=== PATIENT | female | born 1980 | race Caucasian/White ===

== ENCOUNTER 2016-07-18 16:29 | Inpatient (IN) | payer OTHER ==
[~2016-07-18] VITALS: Ht 154.9 cm; Wt 47.7 kg
[2016-07-18] MEDS: NICOTINE 21MG/24HR 1 EA TRANSDERMAL TD SCH (09:00)
[~2016-07-18 16:29] MED LIST: DIGO0.12 PO; ZOLO50TA PO
[2016-07-18] MEDS ORDERED: MOM 30ML SUSPENSION UDC PO PRN (22:45)
[2016-07-18] MEDS ORDERED: MAALOX 30 ML SUSP *UDC PO PRN (22:45)
--- NOTE | 2016-07-18 23:15 | EDDOCDS ---
Physician Documentation [facility] [employer] Name: Grisel Stover Age: 36 yrs Sex: Female : 1980 Arrival Date: 07/18/2016 Time: 16:29 Bed U4 Private MD: Disposition: 07/18 20:05 Critical Care: Critical care not applicable. pc Disposition: 07/18/16 20:05 Hospitalization ordered by John Mccray for Inpatient Admission. Preliminary diagnosis are Suicide attempt, Major depressive disorder, recurrent, moderate. - Bed requested for Admit. - Status is Inpatient Admission. cp1 - Condition is Stable. - Problem is new. - Symptoms are unchanged. HPI: 17:00 This 36 yrs old Female presents to ER via Walkin/Carried/Asstd with pc complaints of Psych Problem. 17:00 She overdose on Benadryl and alcohol last night as a suicide attempt, was seen at [facility] and medically cleared overnight and transferred here for Psych evaluation. Her potassoim leve was initially low but normalized after oral replacement. 17:00 The patient has experienced similar episodes in the past, a few times. pc Historical: - Allergies: SHELLFISH; - Home Meds: 1. Percocet 5-325 mg Oral tab 1 tab every 6 hours (Last dose: Unknown) - PMHx: pericarditis; Depression; mitral valve prolapse; Lyme Disease; Anxiety; - PSHx: none; - The history from nurses notes was reviewed: but there are no nursing notes, or only partial notes available at the time of my charting. - Social history: Smoking status: Patient states was never smoker of tobacco. No barriers to communication noted, Speaks appropriately for age. - : The pt / caregiver states he / she is not on anticoagulants. Home medication list is obtained from the facility SEP. - Exposure Risk Screening:: None identified. - Immunization history:: All immunizations up-to-date. - Family history: Not pertinent. - Social history:: the patient smokes cigarettes the patient drinks alcohol. ANATOMICAL EMBALMER: 16:30 negative as per lab work ml6 ROS: 17:00 All systems are negative except as listed. The psychiatric and neurological components pc are also addressed in the HPI. Exam: 17:00 General Appearance: alert, no acute distress. pc 17:00 ENT: ear, nose and throat normal, pharynx normal. 17:00 Eyes: pupils equal, round and reactive to light, extraocular motions intact. 17:00 Neck: The exam reveals no acute abnormalities. ROM is normal and painless. No nuchal rigidity is noted.. 17:00 Respiratory: breathing is even and unlabored, breath sounds are normal. 17:00 Cardiovascular: regular pulse rate, regular heart rhythm, normal heart sounds, equal and full pulses bilaterally. 17:00 Abdomen: soft, non-tender, no organomegaly, normal bowel sounds. 17:00 Skin: skin color is normal, warm, dry. 17:00 Extremities: The extremities have a grossly normal appearance, are non-tender, without acute ROM abnormalities. 17:00 Neuro: alert, oriented to person, place and time, cranial nerves normal as tested, no motor deficits, no sensory deficits. 17:00 Psych: mood is depressed, affect is flat. Vital Signs: 16:30 BP 122 / 78; Pulse 64; Resp 18; Temp 97.3(T); Pulse Ox 98% on R/A; Pain 0/10; ml6 19:54 BP 112 / 80; Pulse 88; Resp 16; Temp 97.5(T); Pulse Ox 100% on R/A; Pain 0/10; slm 22:45 BP 133 / 84; Pulse 75; Resp 16; Temp 96.3; Pulse Ox 100% on R/A; slm MDM: 17:00 Differential diagnosis: depression, suicide attempt. Plan: PFS eval, admission. Data pc reviewed: All records pertaining to the patient's transfer have been reviewed. 17:40 REGULAR DIET PLASTIC THOMAS+DIET ordered. EDMS 18:47 Financial registration complete. gjb 20:05 The patient has been medically cleared for psychiatric evaluation, admission and/or pc transfer. [place] Safe [place] reporting: The patient poses a significant risk to self or others, and PSA/PFS has notified the Nursing Tariff Counsel and he/she will complete the required senior clinical data coordinator. Test interpretation: none. The patient has been re-examined and re-evaluated. There is no appreciated change of the patient's symptoms at this time. Disposition: The historical points, examination findings, and any diagnostic results supporting the provided diagnosis, were discussed with the patient or legal guardian. The need for further work-up and/or treatment in the hospital was explained. 20:14 [facility] Payment Agreement was scanned into [employer] and attached to record. gjb 22:40 Admit to IMHU: ordered. EDMS 22:41 REGULAR DIET ordered. EDMS 22:42 [facility] Legal paperwork was scanned into [employer] and attached to record. jing Signatures: Dispatcher [employer] EDMS Coleman Zhao MD MD pc LaFontaine, Scottie, PSA PSA Toni Paula, RN RN ml6 Britt Tejada,MILITARY SOURCE OPERATIONS SPECIALIST MILITARY SOURCE OPERATIONS SPECIALIST cp1 Myla Burnett The chart was reviewed and I authenticate all verbal orders and agree with the evaluation and treatment provided.Attachments: 20:14 [facility] Payment Agreement gjb MTDD
--- NOTE | 2016-07-18 23:15 | EDDOCDS ---
Nurse's Notes [facility] Name: Grisel Stover Age: 36 yrs Sex: Female : 1980 Arrival Date: 07/18/2016 Time: 16:29 Bed [facility] Private MD: Diagnosis: Suicide attempt;Major depressive disorder, recurrent, moderate Presentation: 07/18 16:30 Presenting complaint: Patient states: sent here from [facility] for MHE due to OD ml6 on benadryl. Mental Health Triage Level: Level 3: The patient presents with recent overdose that might represent a suicide attempt. Adult Sepsis Screening: The patient does not have new or worsening altered mentation. Patient's respiratory rate is less than 22. Systolic blood pressure is greater than 100. Patient has a qSOFA score of 0- Negative Sepsis Screen. Mental Health Triage Level: Level 3: The patient presents with recent overdose that might represent a suicide attempt. Suicide/Homicide risk assessment- The patient reports that he/she has no prior history of suicide attempt and/or organized plan. Status: Patient is not a automobile service station manager or dependent. Transition of care: patient was received from [facility]. 16:30 Acuity: SUSI Level 3 ml6 16:30 Method Of Arrival: Walkin/Carried/Asstd ml6 Triage Assessment: 16:54 General: Appears in no apparent distress, Behavior is appropriate for age, cooperative. ml6 Pain: Denies pain. HIV screening NA for this visit Offered previously. Neurological: No deficits noted. Level of Consciousness is awake, alert, Oriented to person, place, time, Dampener are equal bilaterally. Cardiovascular: No deficits noted. Capillary refill < 3 seconds is brisk in bilateral fingers toes Heart tones S1 S2 present Edema is absent. Pulses are all present. Respiratory: No deficits noted. Airway is patent Respiratory effort is even, unlabored, Respiratory pattern is regular, symmetrical, Breath sounds are clear bilaterally. GI: No deficits noted. Abdomen is flat, Bowel sounds present X 4 quads. Abd is soft and non tender X 4 quads. DELIVERY ANALYST: 16:30 negative as per lab work ml6 Historical: - Allergies: SHELLFISH; - Home Meds: 1. Percocet 5-325 mg Oral tab 1 tab every 6 hours (Last dose: Unknown) - PMHx: pericarditis; Depression; mitral valve prolapse; Lyme Disease; Anxiety; - PSHx: none; - The history from nurses notes was reviewed: but there are no nursing notes, or only partial notes available at the time of my charting. - Social history: Smoking status: Patient states was never smoker of tobacco. No barriers to communication noted, Speaks appropriately for age. - : The pt / caregiver states he / she is not on anticoagulants. Home medication list is obtained from the facility MAR. - Exposure Risk Screening:: None identified. - Immunization history:: All immunizations up-to-date. - Family history: Not pertinent. - Social history:: the patient smokes cigarettes the patient drinks alcohol. Screenin:10 Screening information is obtained from the patient. Fall risk: No risks identified. ml6 Assistance ADL's: requires no assistance with activities of daily living. Abuse/DV Screen: The patient / caregiver reports he/she is: not in a situation that causes fear, pain or injury. Nutritional screening: No deficits noted. Advance Directives: Currently, there is no health care proxy. home support is adequate. Assessment: 16:30 General:. ml6 16:30 General: see triage assessment. ml6 17:30 General: Appears in no apparent distress, comfortable. Pain: Denies pain. Neurological: ml6 No deficits noted. Level of Consciousness is awake, alert, Oriented to person, place, time, Dampener are equal bilaterally. Cardiovascular: No deficits noted. Capillary refill < 3 seconds is brisk in bilateral fingers toes Heart tones S1 S2 present Edema is absent. Pulses are all present. Rhythm is regular Chest pain is denied. Respiratory: No deficits noted. Airway is patent Respiratory effort is even, unlabored, Respiratory pattern is regular, symmetrical, Breath sounds are clear bilaterally. GI: No deficits noted. 19:53 General: Appears in no apparent distress, comfortable, Behavior is appropriate for age, slm cooperative, pleasant. General: pt sitting on stretcher denies needs family in room security observing . Pain: Denies pain. Neurological: Level of Consciousness is awake, alert, obeys commands. Respiratory: Airway is patent Respiratory effort is even, unlabored. Derm: Skin is pink, warm & dry. 21:00 General: Appears in no apparent distress, comfortable, Behavior is cooperative, quiet. slm General: pt sitting on stretcher denies needs security observing . Respiratory: Airway is patent Respiratory effort is even, unlabored. Derm: Skin is pink, warm & dry. 22:02 General: Appears in no apparent distress, comfortable, Behavior is cooperative, quiet. slm General: resting on stretcher security observing . Respiratory: Airway is patent Respiratory effort is even, unlabored, Respiratory pattern is regular, symmetrical. Derm: Skin is pink, warm & dry. 22:32 General: Appears in no apparent distress, comfortable, Behavior is quiet. General: slm resting on stretcher awaiting admission . Respiratory: Airway is patent Respiratory effort is even, unlabored. 22:45 General: Appears in no apparent distress, comfortable, Behavior is appropriate for age, slm cooperative, quiet. General: security observing . Respiratory: Airway is patent Respiratory effort is even, unlabored. Mental Health Eval: 17:27 Mental health consult is initiated at 17:00. Status: The patient is not a rb automobile service station manager or dependent. [facility] Behavioral Health: The patient is not an established patient of [facility] Behavioral Health. Referral Information: Evaluation referral is generated by [facility]. The patient was referred for evaluation because Pt transferred from [facility] after overdose on 40 Benadryl and +ETOH. Pt reported stressed out last couple weeks, BF broke up with her right after [place]. Pt reported taking Benadryl to help sleep. Pt stated went out last night +ETOH. When Pt return home, EXBF called her, Pt became upset and took an handful of pills before her friend could stop her, according to Friend. Pt minimized her behavior, stated does not remember doing that. Pt reported an alcohol issue, drinks 3-4 Xs weekly until reaching intoxication each time. . Subjective: The patients chief complaint is Depressed, "low self esteem", +SI attempt by overdose. . Delusions are denied. Patient's mood is anxious, depressed, Hallucinations are denied. Mental Health history: alcohol abuse, anxiety, depression, abusing Benadryl . sleep disturbance, suicide attempt by At age 16 by cutting wrist and 2014 overdose. Mental Health Admissions: 04/2014 \\T\\ [facility], At age 16 \\T\\ [facility]. Current Outpatient Mental Health Services: Therapist / Agency: Had initial apt with Sonia Santiago, next apt is 07/22/16. According to Pt has initial apt with PCP Chris [facility] Pt attended outpt services \\T\\ [facility]. Current living environment is The patient currently lives self. Patient presents to Emergency Department with the following symptoms within the past 2 weeks: anxiety, depressed mood, labile mood, poor concentration, poor impulse control, relational problem, sleep disturbance - insomnia, suicidal ideation with attempt/gesture by pills. Substance abuse: Patient uses beer, 3-4 Xs weekly OTC. Mental status exam: Patients appearance is disheveled Patient's behavior is cooperative, minimally responsive Speech is unspontaneous Affect is blunted Mood is anxious. depressed. Hallucinations are denied. Appetite is erratic Memory is fair. Energy level is normal. Content of thought is depressive. , Thought process is characterized by flight of ideas. Cognitive level is oriented to person, place, time and situation Patient's insight is poor. Judgement is poor. Rapport with interviewer is good. guarded. Suicidal Ideation is denied. Homicidal ideation is not present. Disposition: Medically cleared for disposition by Coleman Zhao MD. 18:11 Disposition: Psychiatric Consult is performed by phone with Dr John Mccray. rb Narrative: Dr Mccray will do a face to face with Pt. 19:06 Disposition: The patient has a safe destination which is Dr. Almendarez felt Pt could rb be D/C and will followup with outpt \\T\\ [facility] [place] on 07/22/16. Pt currently denies SI/Hi, is A&Ox3, calm and cooperative, denied AH/VH. Pt's mother will transport Pt home and stay with her for a few days. No further interventions needed at this time. 20:00 Disposition: Psychiatric Consult is a face to face evaluation performed by Dr John Mccray. [facility] Admission Criteria: The patient requires continuous observation and/or control to protect self, others or property. The patient's care requires a multi-modal treatment plan under close supervision and coordination due to the complexity and severity of the patient's symptoms. Legal Status: Patient's legal status will be Emergency admission: . [place] Safe [place] Safe [place] is applicable to this patient. The patient poses a risk to self or other and the Nursing Iron Molder Helper has been notified. He/She will enter the patient's data. Vital Signs: 16:30 BP 122 / 78; Pulse 64; Resp 18; Temp 97.3(T); Pulse Ox 98% on R/A; Pain 0/10; ml6 19:54 BP 112 / 80; Pulse 88; Resp 16; Temp 97.5(T); Pulse Ox 100% on R/A; Pain 0/10; slm 22:45 BP 133 / 84; Pulse 75; Resp 16; Temp 96.3; Pulse Ox 100% on R/A; slm Vitals: 16:30 Log In Time N/A - ambulance arrival. ml6 ED Course: 16:30 Patient visited by Barbie Bob PCA. ar3 16:30 Patient moved to Waiting ar3 16:30 Patient moved to [facility] ar3 16:32 Coleman Zhao MD is Attending Physician. pc 16:35 Patient visited by Shiv Harris. dpm 16:48 Triage Initiated ml6 16:52 Patient visited by Coleman Zhao MD. pc 16:56 Patient visited by Shiv Harris. dpm 16:57 Pt greeted and oriented to ED. Patient advised of names of staff involved in care, dpm location of call stearns, wait times and NPO status. Patient has correct armband on for positive identification. Placed in gown. Placed in psych safe attire. Security observing. Property removed, inventory done, secured in belongings bag- placed in locked locker. Placed in locker 4. Latasha (JAMIN) observed pt while changing . Psych Safety Check: Location: Psych Room. Visual Assessment: Cooperative. 17:11 Patient visited by Shiv Harris. dpm 17:27 Patient visited by Shiv Harris. dpm 17:42 Patient visited by Shiv Harris. dpm 18:10 The patient / caregiver is instructed regarding the plan of care and ED course. ml6 18:10 No IV's were initiated during this patient's visit. No procedures done that require ml6 assistance. 18:16 Patient visited by Toni Zuniga RN. ml6 18:16 Patient visited by Shiv Harris. dpm 18:31 Patient moved to OBSERVATION pc 18:33 Patient visited by Shiv Harris. dpm 18:45 Patient visited by Shiv Harris. dpm 19:00 Patient visited by Shiv Harris. dpm 19:21 Patient visited by Shiv Harris. dpm 19:44 Patient visited by Matti Cordoba. tr 19:53 Isela Portillo LPN is Primary Nurse. slm 19:55 Patient visited by Isela Portillo LPN. slm 20:00 Patient visited by Matti Cordoba. tr 20:05 John Mccray is Hospitalizing Provider. pc 20:05 Patient moved to [facility] pc 20:14 Patient visited by Matti Cordoba. tr 20:14 [facility] Payment Agreement was scanned into [employer] and attached to record. gjb 20:18 Patient name changed from Grisel\\S\\\\S\\Ck\\S\\ to Grisel\\S\\ \\S\\Ck. EDMS 20:38 Patient visited by Matti Cordoba. tr 20:45 Patient visited by Matti Cordoba. tr 21:01 Patient visited by Isela Portillo LPN. slm 21:31 Patient visited by Matti Cordoba. tr 21:48 Patient visited by Matti Cordoba. tr 22:00 Patient visited by Matti Cordoba. tr 22:03 Patient visited by Isela Portillo LPN. slm 22:30 Patient visited by Matti Cordoba. tr 22:33 Patient visited by Isela Portillo LPN. m 22:42 E Legal paperwork was scanned into [employer] and attached to record. jl 22:49 Patient visited by Isela Portillo LPN. slm 23:00 Patient visited by Matti Cordoba. tr Attachments: 22:42 [facility] Legal paperwork jl Order Results: There are currently no results for this order. Outcome: 20:05 Decision to Hospitalize by Provider. pc 22:32 No special radiology studies were completed. slm 22:50 Discharge Assessment: patient administered narcotics - no. slm 23:08 The following High Risk Discharge criteria are identified: None. Admitted to [facility] accompanied by tech, with chart. Condition: stable. 23:14 Patient left the ED. [facility] Signatures: Dispatcher [employer] EDMS Coleman Zhao MD MD pc Baxter, Renee, PSA PSA rb LaFontaine, Jon, PSA PSA Romelia Rao, PSA PSA ms Cordoba, Matti Toni Andrade, KIMO RN ml6 Barbie Bob, INVESTIGATION OFFICER INVESTIGATION OFFICER ar3 Britt Tejada,CONTACT CENTRE SUPERVISOR CONTACT CENTRE SUPERVISOR cp1 Shiv Harris dpm, Stephanie,CONTACT CENTRE SUPERVISOR CONTACT CENTRE SUPERVISOR slMyla Freeman MTDD
[2016-07-18 23:26] VITALS: BP 127/86
[2016-07-19 06:34] VITALS: BP 100/68
[2016-07-19] MEDS: NICOTINE 21MG/24HR 1 EA TRANSDERMAL TD SCH (08:46)
[2016-07-19] MEDS: ACETAMINOPHEN TAB 650MG DOSE (2X325MG) PO PRN (18:18)
[2016-07-19 18:48] VITALS: BP 109/86
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
[2016-07-19] MEDS: traZODone 50 MG TAB PO PRN (21:50)
[2016-07-20 06:27] VITALS: BP 107/69
[2016-07-20] MEDS: NICOTINE 21MG/24HR 1 EA TRANSDERMAL TD SCH (08:38)
[2016-07-20] MEDS: ACETAMINOPHEN TAB 650MG DOSE (2X325MG) PO PRN (08:39)
[2016-07-20] MEDS ORDERED: SERTRALINE HCL 25 MG TABLET PO SCH (09:00)
--- NOTE | 2016-07-20 13:17 | HPE ---
DATE OF ADMISSION: 07/18/2016 Please refer to psychiatric history and evaluation for further details on this admission. This examination and history is intended for medical issues which may need treatment, followup or consult on this 36-year-old female who was transferred from [facility] for mental health evaluation secondary to an overdose on Benadryl. PRIMARY CARE PROVIDER: None currently. PAST MEDICAL HISTORY: She has a history of heart disease, Lyme pericarditis, mitral valve prolapse. Lyme disease resolved. History of rectal fissures. PAST SURGICAL HISTORY: None. HOME MEDICATIONS: None. SOCIAL HISTORY: She is single. She drinks 3 or 4 times a week to intoxication. She smokes one half to one pack of cigarettes per day. FAMILY HISTORY: Father myocardial infarction age 53, history of rheumatic heart failure. Mother hypertension, sleep apnea. REVIEW OF SYSTEMS: Negative. She had no complaints. PHYSICAL EXAMINATION: 36-year-old cooperative female in no acute distress. Height 61 inches, BMI 19.3. Blood pressure 127/86, pulse 76, respirations 18, temperature 97.3. The patient is alert and oriented times three. Pupils equal and reactive to light. Extraocular movements intact. Cornea and sclera clear. Conjunctiva normal. No facial asymmetry. Pharynx, tongue and gums pink and moist. Tongue is midline. Neck is supple, without lymphadenopathy. No thyromegaly. No goiter. Chest clear to auscultation, without wheeze or retraction. Heart is regular. Abdomen benign. Bowel sounds positive. Genitourinary ()/Rectal: Not done. Extremities show equal strength, full range of motion. No cyanosis, clubbing or edema. Peripheral pulses equal and palpable bilaterally. Skin is warm and dry. IMPRESSION/PLAN: Psychiatric plan per psychiatry. No acute medical issues.
[2016-07-20 18:39] VITALS: BP 118/76
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
[2016-07-20] MEDS: traZODone 50 MG TAB PO PRN (22:26)
[2016-07-21 06:04] VITALS: BP 104/62
[2016-07-21] MEDS: NICOTINE 21MG/24HR 1 EA TRANSDERMAL TD SCH ×2 (08:47→17:58)
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
--- NOTE | 2016-07-21 12:00 | EDDOCDS ---
Physician Documentation [facility] Name: Grisel Stover Age: 36 yrs Sex: Female : 1980 Arrival Date: 07/18/2016 Time: 16:29 Bed U4 Private MD: Disposition: 07/18 20:05 Critical Care: Critical care not applicable. pc Disposition: 07/18/16 20:05 Hospitalization ordered by John Mccray for Inpatient Admission. Preliminary diagnosis are Suicide attempt, Major depressive disorder, recurrent, moderate. - Bed requested for Admit. - Status is Inpatient Admission. cp1 - Condition is Stable. - Problem is new. - Symptoms are unchanged. HPI: 17:00 This 36 yrs old Female presents to ER via Walkin/Carried/Asstd with pc complaints of Psych Problem. 17:00 She overdose on Benadryl and alcohol last night as a suicide attempt, was seen at [facility] and medically cleared overnight and transferred here for Psych evaluation. Her potassoim leve was initially low but normalized after oral replacement. 17:00 The patient has experienced similar episodes in the past, a few times. pc Historical: - Allergies: SHELLFISH; - Home Meds: 1. Percocet 5-325 mg Oral tab 1 tab every 6 hours (Last dose: Unknown) - PMHx: pericarditis; Depression; mitral valve prolapse; Lyme Disease; Anxiety; - PSHx: none; - The history from nurses notes was reviewed: but there are no nursing notes, or only partial notes available at the time of my charting. - Social history: Smoking status: Patient states was never smoker of tobacco. No barriers to communication noted, Speaks appropriately for age. - : The pt / caregiver states he / she is not on anticoagulants. Home medication list is obtained from the facility SEP. - Exposure Risk Screening:: None identified. - Immunization history:: All immunizations up-to-date. - Family history: Not pertinent. - Social history:: the patient smokes cigarettes the patient drinks alcohol. 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 The psychiatric and neurological components pc are also addressed in the HPI. Exam: 17:00 General Appearance: alert, no acute distress. pc 17:00 ENT: ear, nose and throat normal, pharynx normal. 17:00 Eyes: pupils equal, round and reactive to light, extraocular motions intact. 17:00 Neck: The exam reveals no acute abnormalities. ROM is normal and painless. No nuchal rigidity is noted.. 17:00 Respiratory: breathing is even and unlabored, breath sounds are normal. 17:00 Cardiovascular: regular pulse rate, regular heart rhythm, normal heart sounds, equal and full pulses bilaterally. 17:00 Abdomen: soft, non-tender, no organomegaly, normal bowel sounds. 17:00 Skin: skin color is normal, warm, dry. 17:00 Extremities: The extremities have a grossly normal appearance, are non-tender, without acute ROM abnormalities. 17:00 Neuro: alert, oriented to person, place and time, cranial nerves normal as tested, no motor deficits, no sensory deficits. 17:00 Psych: mood is depressed, affect is flat. Vital Signs: 16:30 BP 122 / 78; Pulse 64; Resp 18; Temp 97.3(T); Pulse Ox 98% on R/A; Pain 0/10; ml6 19:54 BP 112 / 80; Pulse 88; Resp 16; Temp 97.5(T); Pulse Ox 100% on R/A; Pain 0/10; slm 22:45 BP 133 / 84; Pulse 75; Resp 16; Temp 96.3; Pulse Ox 100% on R/A; slm MDM: 17:00 Differential diagnosis: depression, suicide attempt. Plan: PFS eval, admission. Data pc reviewed: All records pertaining to the patient's transfer have been reviewed. 17:40 REGULAR DIET PLASTIC THOMAS+DIET ordered. EDMS 18:47 Financial registration complete. gjb 20:05 The patient has been medically cleared for psychiatric evaluation, admission and/or pc transfer. [place] Safe [place] reporting: The patient poses a significant risk to self or others, and PSA/PFS has notified the Nursing Relay Tester Helper and he/she will complete the required director clinical data. Test interpretation: none. The patient has been re-examined and re-evaluated. There is no appreciated change of the patient's symptoms at this time. Disposition: The historical points, examination findings, and any diagnostic results supporting the provided diagnosis, were discussed with the patient or legal guardian. The need for further work-up and/or treatment in the hospital was explained. 20:14 [facility] Payment Agreement was scanned into [employer] and attached to record. gjb 22:40 Admit to IMHU: ordered. EDMS 22:41 REGULAR DIET ordered. EDMS 22:42 [facility] Legal paperwork was scanned into [employer] and attached to record. jing 07/19 11:20 PCR was scanned into [employer] and attached to record. gb Signatures: Dispatcher [employer] EDMS Coleman Zhao MD MD pc Scottie Tan, PSA PSA Shanice Murray, Reg Reg Toni Morris, RN RN ml6 Britt Tejada LPN DIRECTOR NEWS cp1 Myla Burnett The chart was reviewed and I authenticate all verbal orders and agree with the evaluation and treatment provided.Attachments: 07/18 20:14 [facility] Payment Agreement gjtracie Chart Complete MISAEL
--- NOTE | 2016-07-21 12:00 | EDDOCDS ---
Physician Documentation [facility] Name: Grisel Stover Age: 36 yrs Sex: Female : 1980 Arrival Date: 07/18/2016 Time: 16:29 Bed U4 Private MD: Disposition: 07/18 20:05 Critical Care: Critical care not applicable. pc Disposition: 07/18/16 20:05 Hospitalization ordered by John Mccray for Inpatient Admission. Preliminary diagnosis are Suicide attempt, Major depressive disorder, recurrent, moderate. - Bed requested for Admit. - Status is Inpatient Admission. cp1 - Condition is Stable. - Problem is new. - Symptoms are unchanged. HPI: 17:00 This 36 yrs old Female presents to ER via Walkin/Carried/Asstd with pc complaints of Psych Problem. 17:00 She overdose on Benadryl and alcohol last night as a suicide attempt, was seen at [facility] and medically cleared overnight and transferred here for Psych evaluation. Her potassoim leve was initially low but normalized after oral replacement. 17:00 The patient has experienced similar episodes in the past, a few times. pc Historical: - Allergies: SHELLFISH; - Home Meds: 1. Percocet 5-325 mg Oral tab 1 tab every 6 hours (Last dose: Unknown) - PMHx: pericarditis; Depression; mitral valve prolapse; Lyme Disease; Anxiety; - PSHx: none; - The history from nurses notes was reviewed: but there are no nursing notes, or only partial notes available at the time of my charting. - Social history: Smoking status: Patient states was never smoker of tobacco. No barriers to communication noted, Speaks appropriately for age. - : The pt / caregiver states he / she is not on anticoagulants. Home medication list is obtained from the facility SEP. - Exposure Risk Screening:: None identified. - Immunization history:: All immunizations up-to-date. - Family history: Not pertinent. - Social history:: the patient smokes cigarettes the patient drinks alcohol. 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 The psychiatric and neurological components pc are also addressed in the HPI. Exam: 17:00 General Appearance: alert, no acute distress. pc 17:00 ENT: ear, nose and throat normal, pharynx normal. 17:00 Eyes: pupils equal, round and reactive to light, extraocular motions intact. 17:00 Neck: The exam reveals no acute abnormalities. ROM is normal and painless. No nuchal rigidity is noted.. 17:00 Respiratory: breathing is even and unlabored, breath sounds are normal. 17:00 Cardiovascular: regular pulse rate, regular heart rhythm, normal heart sounds, equal and full pulses bilaterally. 17:00 Abdomen: soft, non-tender, no organomegaly, normal bowel sounds. 17:00 Skin: skin color is normal, warm, dry. 17:00 Extremities: The extremities have a grossly normal appearance, are non-tender, without acute ROM abnormalities. 17:00 Neuro: alert, oriented to person, place and time, cranial nerves normal as tested, no motor deficits, no sensory deficits. 17:00 Psych: mood is depressed, affect is flat. Vital Signs: 16:30 BP 122 / 78; Pulse 64; Resp 18; Temp 97.3(T); Pulse Ox 98% on R/A; Pain 0/10; ml6 19:54 BP 112 / 80; Pulse 88; Resp 16; Temp 97.5(T); Pulse Ox 100% on R/A; Pain 0/10; slm 22:45 BP 133 / 84; Pulse 75; Resp 16; Temp 96.3; Pulse Ox 100% on R/A; slm MDM: 17:00 Differential diagnosis: depression, suicide attempt. Plan: PFS eval, admission. Data pc reviewed: All records pertaining to the patient's transfer have been reviewed. 17:40 REGULAR DIET PLASTIC THOMAS+DIET ordered. EDMS 18:47 Financial registration complete. gjb 20:05 The patient has been medically cleared for psychiatric evaluation, admission and/or pc transfer. [place] Safe [place] reporting: The patient poses a significant risk to self or others, and PSA/PFS has notified the Nursing Systems Analyst Developer and he/she will complete the required data consultant. Test interpretation: none. The patient has been re-examined and re-evaluated. There is no appreciated change of the patient's symptoms at this time. Disposition: The historical points, examination findings, and any diagnostic results supporting the provided diagnosis, were discussed with the patient or legal guardian. The need for further work-up and/or treatment in the hospital was explained. 20:14 [facility] Payment Agreement was scanned into [employer] and attached to record. gjb 22:40 Admit to IMHU: ordered. EDMS 22:41 REGULAR DIET ordered. EDMS 22:42 [facility] Legal paperwork was scanned into [employer] and attached to record. jing 07/19 11:20 PCR was scanned into [employer] and attached to record. gb Signatures: Dispatcher [employer] EDMS Coleman Zhao MD MD pc Scottie Tan, PSA PSA Shanice Murray, Reg Reg Toni Morris, RN RN ml6 Britt Tejada LPN CLAIMS ADJUSTER SUPERVISOR cp1 Myla Burnett The chart was reviewed and I authenticate all verbal orders and agree with the evaluation and treatment provided.Attachments: 07/18 20:14 [facility] Payment Agreement gjtracie Chart Complete MISAEL
[2016-07-21] MEDS: ACETAMINOPHEN TAB 650MG DOSE (2X325MG) PO PRN ×2 (13:31→21:16)
[2016-07-21 18:00] VITALS: BP 126/88
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
[2016-07-21] MEDS: traZODone 50 MG TAB PO PRN (22:38)
[2016-07-22 06:39] VITALS: BP 107/71
[2016-07-22] MEDS ORDERED: NICO21PAT TD (08:07)
[2016-07-22] MEDS ORDERED: TRAZO50TA PO (10:38)
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
== END 2016-07-22 11:08 | disposition home or self-care (01) | DRG 755 ==
LOC: M ED 16:29 → M PSY 23:20
PROVIDERS: ADMIT Psychiatry & Neurology Psychiatry; ATTEND Psychiatry & Neurology Psychiatry
DX: F43.23 Adjustment disorder with mixed anxiety and depressed mood (principal); F10.10 Alcohol abuse, uncomplicated

== ENCOUNTER → 2016-08-07 | Outpatient (REF) | payer OTHER ==
[~2016-08-07] MED LIST changes: +NICO21PAT TD; +TRAZO50TA PO
[2016-08-07 14:14] LABS: CONTROL LINE INT CTR LINE PRESENT; HIV SCRN NEGATIVE (NEGATIVE); HIV SCRN1 NEGATIVE (NEGATIVE)
== END ==
LOC: M SFHCWAGY 10:33
PROVIDERS: ATTEND Family Medicine
DX: Z12.4 Encounter for screening for malignant neoplasm of cervix (principal); Z11.3 Encounter for screening for infections with a predominantly sexual mode of transmission

== ENCOUNTER → 2016-10-06 | Outpatient (REF) | payer OTHER ==
[2016-10-06 18:57] LABS: BASO % 0.6 % (0.0-1.0); EOS # 0.2 K/mm3 (0.0-0.50); EOS % 2.6 % (0.0-3.0); LARGE UNSTAINED CELL # 0.1 K/mm3 (0.0-0.4); LARGE UNSTAINED CELL % 2.2 % (0.0-4.0); LYMPH # 2.2 K/mm3 (1.5-4.5); LYMPH % 36.1 % (24.0-44.0); MEAN CORPUSCULAR HEMOGLOBIN 34.3 pg (27.0-33.0); MEAN CORPUSCULAR HGB CONC 33.8 g/dl (32.0-36.5); MEAN CORPUSCULAR VOLUME 101.3 fl (80.0-96.0); MONO # 0.4 K/mm3 (0.0-0.8); MONO % 7.1 % (0.0-5.0); NEUTROPHILS % 51.6 % (36.0-66.0); PLATELET COUNT, AUTOMATED 239 k/mm3 (150-450); RED CELL DISTRIBUTION WIDTH 12.3 % (11.5-14.5); WHITE BLOOD COUNT 5.7 K/mm3 (4.0-10.0)
[2016-10-06 19:00] LABS: FREE T4 0.85 NG/DL (0.76-1.46)
[2016-10-07 12:20] LABS: HIV SCREEN CENTAUR NEGATIVE (NEGATIVE)
== END ==
LOC: M LAB REF 16:31
PROVIDERS: ATTEND Physician Assistant
DX: N92.6 Irregular menstruation, unspecified (principal); N76.0 Acute vaginitis

== ENCOUNTER → 2016-11-12 | Outpatient (REF) | payer OTHER | LOC: M LAB REF 16:14 | PROVIDERS: ATTEND Physician Assistant | DX: N39.0 Urinary tract infection, site not specified (principal) ==

== ENCOUNTER → 2017-09-03 | Outpatient (REF) | payer OTHER | LOC: M SFHCWAGY 09:17 | DX: Z12.4 Encounter for screening for malignant neoplasm of cervix (principal); Z11.3 Encounter for screening for infections with a predominantly sexual mode of transmission ==

== ENCOUNTER → 2018-07-01 | Outpatient (REF) | payer OTHER ==
[2018-07-01 16:44] LABS: C REACTIVE PROTEIN QUANTITATIV < 0.30 MG/DL (0.00-0.30); CHOLESTEROL LEVEL 179 MG/DL (<200); CHOLESTEROL RISK RATIO 2.386 (<5); HDL CHOLESTEROL 75 MG/DL (>40); LDL CHOLESTEROL 81 MG/DL (<100); NON-HDL-C 104 MG/DL; TRIGLYCERIDES LEVEL 114 MG/DL (<150)
== END ==
LOC: M LABDRAWC 16:02
PROVIDERS: ATTEND Internal Medicine Cardiovascular Disease
DX: Z82.49 Family history of ischemic heart disease and other diseases of the circulatory system (principal)

== ENCOUNTER → 2018-08-09 | Outpatient (REF) | payer OTHER ==
[~2018-08-09] MED LIST changes: +ADDE10CA3 PO; +ADDE30CA3 PO; +IBUP200C25 PO
[2018-08-09 17:48] LABS: CHLAMYDIA DNA AMPLIFICATION NEGATIVE (NEGATIVE); GC DNA AMPLIFICATION NEGATIVE (NEGATIVE)
== END ==
LOC: M SFHCWAGY 15:33
PROVIDERS: ATTEND Nurse Practitioner Women's Health
DX: N76.0 Acute vaginitis (principal); B96.89 Other specified bacterial agents as the cause of diseases classified elsewhere; Z11.3 Encounter for screening for infections with a predominantly sexual mode of transmission

== ENCOUNTER 2018-08-15 11:56 | Day surgery (SDC) | payer OTHER ==
[~2018-08-15] VITALS: Ht 154.9 cm; Wt 52.7 kg
[~2018-08-15 11:56] MED LIST changes: +LIDOCAINE 1% MDV 20ML VIAL As Ordered ONE; +LIDOCAINE 2% INJ 100 MG/5 ML SDV (FOR ANES.) As Ordered ONE; +LR 1,000 ML IV ONE; +MIDAZOLAM INJ 2 MG/2 ML VIAL (J2250) As Ordered ONE; +PROPOFOL 200 MG/20 ML VIAL As Ordered ONE; +ceFAZolin SOD 1 GM in D5W MINI-BAG PLUS 50 ML IV ONE; +fentaNYL 100 MCG/2 ML INJECTION (J3010) As Ordered ONE
[2018-08-15] MEDS ORDERED: PROPOFOL 200 MG/20 ML VIAL As Ordered ONE (12:01)
[2018-08-15 13:15] LABS: HCG, SERUM QUALITATIVE NEGATIVE (NEGATIVE)
[2018-08-15] MEDS ORDERED: ONDANSETRON 4MG/2ML VIAL (J2405) As Ordered ONE (13:51)
[2018-08-15] MEDS ORDERED: KETOROLAC 60 MG/2 ML VIAL (J1885) As Ordered ONE (13:52)
--- NOTE | 2018-08-15 14:24 | RO ---
DATE OF OPERATION: 08/15/2018 PREOPERATIVE DIAGNOSIS: Unexplained syncope. POSTOPERATIVE DIAGNOSIS: Unexplained syncope. PROCEDURE PERFORMED: Implantation of a [employer] implantable loop recorder. SURGEON: Bonifacio Valdes MD RAILWAY TRACTION LINE WORKER: None. ANESTHESIA: Lidocaine 1% local/monitored anesthetic care. FINDINGS: Unexplained syncope. No specimens. Estimated blood loss less than 1 mL. No blood products replaced. No drains. No complications. PROCEDURE DESCRIPTION: Patient was prepped and draped over the left anterior chest and sternum. Lidocaine 1% was used for local anesthetic. An incision approximately 1 cm in length was made with a #15 blade approximately 4th left interspace 1 inch lateral to the left parasternal border. The guide on the insertion tool was then placed in the incision and advanced in a caudal direction parallel to the chest wall in the breast tissue. The insertion tool was then rotated 180 degrees. The plunger was placed into the insertion tool and was used to advance the loop recorder into the subcutaneous tissue/breast tissue. The plunger was then removed and then the insertion tool was removed leaving the loop recorder behind. Next, the skin was approximated using a #4-0 Biosyn suture, which was placed subcutaneously with the ends of the suture protruding from the skin at both ends of the incision line. Next, two layers of Dermabond was applied. After the Dermabond was dry, the free suture pieces were snipped at the level of the skin. Next, Mastisol was placed on both sides of the incision being careful not to get any of the Mastisol on the Dermabond. Next, three 1/2 inch Steri-Strips were placed across the incision perpendicular to the incision. Patient tolerated the procedure well without any immediate complications. The implantable loop recorder implanted was a [employer] Reveal LINQ, model #LNQ11 with serial #[id number]. The initial R wave amplitude was 0.82 mV.
[2018-08-15] MEDS ORDERED: LR 1,000 ML IV SCH (14:30)
[2018-08-15] MEDS ORDERED: NORCO, ANEXSIA 5/325MG TABLET (HYDROcodone/ACETAMINOPHEN) PO PRN (14:30)
[2018-08-15] MEDS ORDERED: ONDANSETRON 4MG/2ML VIAL (J2405) IV PRN (14:30)
[2018-08-15 14:35] VITALS: BP 107/73
== END 2018-08-15 14:50 | disposition home or self-care (01) ==
LOC: M SDC 11:56
PROVIDERS: ATTEND Internal Medicine Cardiovascular Disease
DX: R55 Syncope and collapse (principal); F41.9 Anxiety disorder, unspecified; F17.210 Nicotine dependence, cigarettes, uncomplicated; Z91.013 Allergy to seafood; Z79.899 Other long term (current) drug therapy
CPT/HCPCS: 33285; 84703; C1764; J1885; J2250; J2405; J3010

== ENCOUNTER → 2018-09-23 | Outpatient (REF) | payer OTHER ==
[~2018-09-23] MED LIST changes: -LIDOCAINE 1% MDV 20ML VIAL As Ordered ONE; -LIDOCAINE 2% INJ 100 MG/5 ML SDV (FOR ANES.) As Ordered ONE; -LR 1,000 ML IV ONE; -MIDAZOLAM INJ 2 MG/2 ML VIAL (J2250) As Ordered ONE; -PROPOFOL 200 MG/20 ML VIAL As Ordered ONE; -ceFAZolin SOD 1 GM in D5W MINI-BAG PLUS 50 ML IV ONE; -fentaNYL 100 MCG/2 ML INJECTION (J3010) As Ordered ONE
[2018-09-23 14:57] LABS: CHLAMYDIA DNA AMPLIFICATION NEGATIVE (NEGATIVE); GC DNA AMPLIFICATION NEGATIVE (NEGATIVE)
== END ==
LOC: M SFHCWAGY 09:45
PROVIDERS: ATTEND Family Medicine
DX: Z12.4 Encounter for screening for malignant neoplasm of cervix (principal); Z11.3 Encounter for screening for infections with a predominantly sexual mode of transmission

== ENCOUNTER → 2018-09-25 | Outpatient (CLI) | payer OTHER ==
--- NOTE | 2018-09-25 16:43 | REP ---
Right hand four views History: Injury There is no acute fracture or dislocation. The joint spaces are normal in appearance. Impression: There is no acute fracture or dislocation. Electronically Signed by Moisés Stern MD 09/25/2018 04:34 P
== END ==
LOC: M LRY 16:22
PROVIDERS: ATTEND Physician Assistant
DX: S69.91XA Unspecified injury of right wrist, hand and finger(s), initial encounter (principal); Y99.9 Unspecified external cause status; Y92.9 Unspecified place or not applicable; Y93.9 Activity, unspecified; X58.XXXA Exposure to other specified factors, initial encounter

== ENCOUNTER → 2019-04-21 | Outpatient (REF) | payer OTHER ==
[~2019-04-21] MED LIST changes: +TRAZ1TAB10 PO; -TRAZO50TA PO
[2019-04-24 14:38] LABS: CHLAMYDIA DNA AMPLIFICATION NEGATIVE (NEGATIVE); GC DNA AMPLIFICATION NEGATIVE (NEGATIVE)
== END ==
LOC: M SFHCWAGY 15:31
PROVIDERS: ATTEND Family Medicine
DX: Z11.3 Encounter for screening for infections with a predominantly sexual mode of transmission (principal)

== ENCOUNTER → 2019-11-14 | Outpatient (REF) | payer OTHER ==
[2019-11-14 21:04] LABS: CHLAMYDIA DNA AMPLIFICATION NEGATIVE (NEGATIVE); GC DNA AMPLIFICATION NEGATIVE (NEGATIVE)
== END ==
LOC: M SFHCWAGY 17:24
PROVIDERS: ATTEND Nurse Practitioner Women's Health
DX: N76.0 Acute vaginitis (principal); B96.89 Other specified bacterial agents as the cause of diseases classified elsewhere; Z11.3 Encounter for screening for infections with a predominantly sexual mode of transmission

== ENCOUNTER → 2020-06-26 | Outpatient (CLI) | payer SELFPAY | LOC: M LABSMTC 11:52 | PROVIDERS: ATTEND Pediatrics | DX: Z20.828 Contact with and (suspected) exposure to other viral communicable diseases (principal) ==

== ENCOUNTER → 2020-07-26 | Outpatient (CLI) | payer SELFPAY | LOC: M LABSMTC 12:13 | PROVIDERS: ATTEND Pediatrics | DX: Z20.822 Contact with and (suspected) exposure to COVID-19 (principal) ==

== ENCOUNTER → 2021-05-15 | Outpatient (REF) | payer OTHER | LOC: M PLALAB 10:12 | PROVIDERS: ATTEND Specialist | DX: Z12.4 Encounter for screening for malignant neoplasm of cervix (principal) ==

== ENCOUNTER → 2021-05-22 | Outpatient (REF) | payer OTHER ==
[2021-05-23 12:35] LABS: FREE T4 0.81 NG/DL (0.76-1.46); THYROID STIMULATING HORMONE 0.933 uIU/ML (0.358-3.740)
[2021-05-23 12:40] LABS: FOLLICLE STIMULATING HORMONE 4.6 mIU/mL; LUTEINIZING HORMONE 12.1 mIU/mL; PROGESTERONE 12.19 NG/ML; PROLACTIN 16.4 NG/ML
== END ==
LOC: M PLALAB 13:42
PROVIDERS: ATTEND Specialist
DX: N92.6 Irregular menstruation, unspecified (principal)

== ENCOUNTER → 2022-12-10 | Outpatient (CLI) | payer OTHER ==
[~2022-12-10] MED LIST changes: +ISOVUE-370 76% 100ML VIAL As Ordered ONE
== END ==
LOC: M RAD 08:20
PROVIDERS: ATTEND Internal Medicine Cardiovascular Disease
DX: I71.019 Dissection of thoracic aorta, unspecified (principal)
CPT/HCPCS: 71275; Q9967